=== PATIENT | male | born 1965 | race Caucasian/White ===

== ENCOUNTER 2017-10-16 10:04 | Outpatient (CLI) | payer OTHER ==
--- NOTE | 2017-10-16 11:57 | CARDIAC PROCEDURE NOTE ---
DATE OF SERVICE: 10/16/2017 Physician: ALPHONSE Stafford PRIMARY CARE PHYSICIAN - Anne Walden PA-C. PROCEDURE: Exercise tolerance test. 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 CURRENT SYMPTOMATOLOGY: None. CLINICAL HISTORY - 52-year-old male with known coronary artery disease and history of CABG, 5-vessel, around 2011. Initial resting vital signs - Blood pressure 126/70, HR 78, HT 70 inches, weight 159, BMI 22.8. The patient performed treadmill exercise using a Zak protocol, completing 9 minutes, 38 seconds and completing an estimated workload of 10.1 metabolic equivalents. Maximal blood pressure was 190/64 with a heart rate of 153 beats per minute or 90% of maximum predicted heart rate for age. The blood pressure response to exercise was within normal limits. The patient stopped due to his legs tiring. The resting ECG demonstrated normal sinus rhythm with repolarization abnormality. Maximal ST segment depression was 0- 0.5 mm and upsloping. There was no ectopy. FINAL IMPRESSIONS: 1. Negative stress electrocardiogram for ischemia by electrocardiographic criteria. 2. Negative stress test clinically for angina. 3. No ectopy, nor arrhythmia seen. 4. [place] [employer] Functional Class I. TD: 10/16/2017 11:57 [facility]
[2017-10-16 16:23] VITALS: BP 126/70
--- NOTE | 2017-10-23 09:04 | XRAY Report ---
CARDIOVASCULAR TREADMILL TEST There was no imaging performed for this exam. Procedure notes and results available in the EMR. MAXIMINO
== END 2017-10-16 10:05 | disposition home or self-care (01) ==
LOC: DI 10:04
PROVIDERS: ATTEND Physician Assistant
DX: Z02.4 Encounter for examination for driving license (principal); I25.10 Atherosclerotic heart disease of native coronary artery without angina pectoris; Z95.1 Presence of aortocoronary bypass graft
CPT/HCPCS: 78452; 93017

== ENCOUNTER 2019-10-13 12:08 | Outpatient (CLI) | payer OTHER, BC ==
--- NOTE | 2019-10-13 19:35 | XRAY Report ---
Reason: NEW ONSET OF RADICULOPATHY, CERVICAL FRACTURE REPA Procedure Date: 10/13/2019 Accession Number: [id number] / [id number] Procedure: XR - Cervical Spine 2 View CPT Code: Final Report FULL RESULT: EXAM: CERVICAL SPINE RADIOGRAPHY EXAM DATE: 10/13/2019 01:27 PM. CLINICAL HISTORY: New onset of radiculopathy, cervical fracture repair on 05/22/2019. COMPARISONS: XR CERVICAL SPINE 2 OR 3 VIEWS 05/21/2019 9:24 AM. TECHNIQUE: 3 views. FINDINGS: Alignment: Stable alignment with mild lower thoracic dextroscoliosis. Bones and disks: Previous anterior fusion and disk replacement C6-C7 with unremarkable and stable appearing surgical hardware. Mild to moderate disk height loss at C4-C5 and C5-C6. Multilevel bilateral moderate facet DJD. Soft Tissues: Normal. No prevertebral soft tissue swelling. The visualized lung apices are clear. IMPRESSION: 1. Previous anterior C6-C7 fusion and disk replacement appears unremarkable. 2. Mild to moderate disk level degenerative changes at C4-C5 and C5-C6. 3. Multilevel bilateral moderate facet DJD. RADIA
== END 2019-10-13 12:09 | disposition home or self-care (01) ==
LOC: DI 12:08
PROVIDERS: ATTEND Nurse Practitioner Family
DX: M47.812 Spondylosis without myelopathy or radiculopathy, cervical region (principal); M50.321 Other cervical disc degeneration at C4-C5 level
CPT/HCPCS: 72040

== ENCOUNTER 2021-06-13 11:02 | Outpatient (CLI) | payer OTHER ==
[2021-06-13 15:09] LABS: BASOPHILS # (AUTO) 0.1 10^3/uL (0.0-0.1); BASOPHILS % (AUTO) 0.6 %; EOSINOPHILS % (AUTO) 0.5 %; HCT - HEMATOCRIT 46.3 % (42.0-52.0); HGB - HEMOGLOBIN 15.6 g/dL (14.0-18.0); LYMPHOCYTES # (AUTO) 2.1 10^3/uL (1.5-3.5); LYMPHOCYTES % (AUTO) 24.1 %; MEAN CORPUSCULAR HEMOGLOBIN 32.9 pg (27.0-31.0); MEAN CORPUSCULAR HGB CONC 33.7 g/dL (32.0-36.0); MEAN CORPUSCULAR VOLUME 97.7 fL (80.0-94.0); MONOCYTES # (AUTO) 0.7 10^3/uL (0.0-1.0); MONOCYTES % (AUTO) 7.9 %; NEUTROPHILS # (AUTO) 5.7 10^3/uL (1.5-6.6); NEUTROPHILS % (AUTO) 66.5 %; PLT - PLATELET COUNT 246 10^3/uL (130-450); RED BLOOD COUNT 4.74 10^6/uL (4.70-6.10); RED CELL DISTRIBUTION WIDTH 12.5 % (12.0-15.0); WHITE BLOOD COUNT 8.6 x10^3/uL (4.8-10.8)
[2021-06-13 15:29] LABS: ALBUMIN 4.3 g/dL (3.2-5.5); ALBUMIN/GLOBULIN RATIO 1.2 (1.0-2.2); CALCIUM 9.5 mg/dL (8.5-10.3); CREATININE 0.7 mg/dL (0.6-1.2); POTASSIUM 4.3 mmol/L (3.5-5.0); TOTAL PROTEIN 7.8 g/dL (6.7-8.2)
== END 2021-06-13 11:03 | disposition home or self-care (01) ==
LOC: LAB.S 11:02
PROVIDERS: ATTEND Family Medicine
DX: R10.32 Left lower quadrant pain (principal)
CPT/HCPCS: 36415; 80053; 85025

== ENCOUNTER 2022-12-03 10:43 | Outpatient (CLI) | payer BC ==
--- NOTE | 2022-12-03 10:57 | CARDIAC PROCEDURE NOTE ---
Stress Test Report Service Date: 12/03/22 Service Time: 11:00 Ordering Provider: Vivian Rhoades MD Indication for Test: Screening study in patient with history of 5 vessel coronary artery bypass graft surgery in ~2009, with continued cigarette smoking and poor tolerance of simvastatin. Significant Medical History: Mr Gray reports the onset of a typical anginal symptom complex, with left arm aching, profuse sweats and increased work of breathing, which, after several normal resting EKGs, was determined to be ischemic in origin on a treadmill stress test. Heart catheterization by Dr. Hodgson revealed multivessel disease and he underwent CABG surgery that appears to have utilized a TALBERT graft, 2 radial artery grafts and 2 vein grafts. 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 He has remained on daily aspirin "religiously", but he found that simvastatin was disruptive to his sleep so he discontinued it; he has taken atenolol that was prescribed only intermittently, and he was lost to follow-up for some time. He has not had recurrence of his anginal symptoms, but continues to smoke, in spite of an attempt at cessation with Wellbutrin. 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 He was seen recently by Dr. Rhoades, who encouraged him to continue aspirin, transitioned him to metoprolol in place of atenolol and starte d rosuvastatin, which he has taken every night for the past week without any apparent side effects to date. Cardiac Risk Factors: Positive for known CAD, s/p CABG surgery, ongoing cigarette smoking of ~1.5 packs daily, hyperlipidemia, hypertension and positive family history of CAD and PAD in his father. He has no history of diabetes. Type of Stress Test: Exercise Treadmill Test (ETT) Procedure: -Exercise Treadmill Test- After signing informed consent, the patient performed treadmill exercise using a Zak protocol. The patient exercised for 6 minutes 9 seconds and achieved a peak heart rate of 154 (93 percent predicted maximum heart rate for age), and an estimated workload of 7.3 METS. The test was terminated due to fatigue/shortness of breath and calf tightness. Resting heart rate: 88 Peak heart rate: 154 Normal response to exercise. Resting BP: 136/91 Peak BP: 215/103 Elevation of resting diastolic BP, with physiologic increase in systolic BP and abnormal increase in diastolic BP in response to exercise. Rhythm during exercise: Sinus rhythm throughout with observation of 12 PVCs over the course of the exercise period. Symptoms: He reported no arm/neck/jaw/chest discomfort during exercise. EKG at rest showed normal sinus rhythm with poor R wave progression in leads V1V4, concerning for prior anteroseptal infarct, though no clear Q waves were present; no resting ST segment or T-wave abnormalities. EKG at peak stress showed J-point depression with upsloping ST depression, NOT meeting diagnostic criteria for ischemia. In Recovery heart rate rapidly/normally decreased toward baseline and BP gradually decreased, with final value 166/86 at 4 minutes. No imaging was ordered with this stress test. IRogelio MD, was present throughout this treadmill stress study and supervised it in its entirety. Summary: 1) Exercise tolerance significantly reduced for age, as evidenced by MOON of 32%. 2) Borderline abnormal resting EKG, with possible anteroseptal infarct pattern but interpretable ST segments throughout. 3) Adequate level of exercise was achieved on this treadmill stress test. 4) Normal systolic BP response to exercise, with abnormal increase in diastolic BP from baseline elevated level. 5) No ischemic changes by EKG criteria were seen at peak stress. 6) No imaging was ordered with this test. CONCLUSIONS: 1) No symptom or EKG evidence of inducible ischemia with an adequate level of treadmill stress. 2) Significantly reduced exercise capacity for age, likely due to ongoing tobacco smoking. The patient was counseled regarding the importance of discontinuation of cigarette smoking and he was advised to discuss a trial of Chantix with his primary provider, Dr. Rhoades. He was also encouraged to re- commit to a regular exercise program, given low risk ETT results and reduced exertional capacity., 3) With his abnormal resting diastolic blood pressure and abnormal increase in DBP with exercise, he appears to be an appropriate candidate for continued antihypertensive therapy. In view of low risk treadmill results regarding ischemia he may be better served by switching to either a vasodilating beta- maria (such as labetalol) or transitioning to a more standard antihypertensive agent such as a RAAS inhibitor, calcium channel maria or thiazide-like diuretic. 4) Follow-up evaluation and return to care under Dr. Hodgson may be reasonable given his ongoing risk factors, to bring the best resources to bear on these risk factors (e.g. cigarette cessation program and/or aggressive lipid lowering to goal).
== END 2022-12-03 10:44 | disposition home or self-care (01) ==
LOC: DI 10:43
PROVIDERS: ATTEND Family Medicine
DX: I25.10 Atherosclerotic heart disease of native coronary artery without angina pectoris (principal); Z95.1 Presence of aortocoronary bypass graft; F17.200 Nicotine dependence, unspecified, uncomplicated; E78.5 Hyperlipidemia, unspecified; I10 Essential (primary) hypertension; Z82.49 Family history of ischemic heart disease and other diseases of the circulatory system
CPT/HCPCS: 93016; 93017; 93018

== ENCOUNTER 2022-12-31 08:57 | Outpatient (CLI) | payer BC ==
[2022-12-31 14:46] LABS: BASOPHILS % (AUTO) 0.4 %; EOSINOPHILS # (AUTO) 0.1 10^3/uL (0.0-0.7); EOSINOPHILS % (AUTO) 0.6 %; HCT - HEMATOCRIT 44.2 % (42.0-52.0); LYMPHOCYTES # (AUTO) 2.1 10^3/uL (1.5-3.5); LYMPHOCYTES % (AUTO) 21.2 %; MEAN CORPUSCULAR HEMOGLOBIN 32.5 pg (27.0-31.0); MEAN CORPUSCULAR HGB CONC 33.9 g/dL (32.0-36.0); MEAN CORPUSCULAR VOLUME 95.7 fL (80.0-94.0); MONOCYTES # (AUTO) 0.9 10^3/uL (0.0-1.0); MONOCYTES % (AUTO) 8.7 %; NEUTROPHILS # (AUTO) 6.9 10^3/uL (1.5-6.6); NEUTROPHILS % (AUTO) 68.8 %; PLT - PLATELET COUNT 215 10^3/uL (130-450); RED BLOOD COUNT 4.62 10^6/uL (4.70-6.10); RED CELL DISTRIBUTION WIDTH 12.9 % (12.0-15.0)
[2022-12-31 15:15] LABS: THYROID STIMULATING HORMONE 0.74 uIU/mL (0.34-5.60)
[2022-12-31 15:16] LABS: FREE T3 3.58 pg/mL (2.5-3.9)
[2022-12-31 15:17] LABS: FREE T4 (FREE THYROXINE) 0.83 ng/dL (0.58-1.64)
[2022-12-31 15:20] LABS: PSA FREE 0.093 ng/mL (0.16-2.81)
[2022-12-31 15:22] LABS: ALBUMIN 4.1 g/dL (3.2-5.5); ALBUMIN/GLOBULIN RATIO 1.2 (1.0-2.2); ALKALINE PHOSPHATASE 76 IU/L (42-121); ALT ALANINE AMINOTRANSFERASE 61 IU/L (10-60); AST ASPARTATE AMINOTRANSFERASE 36 IU/L (10-42); BILIRUBIN,TOTAL 0.9 mg/dL (0.2-1.0); BUN - BLOOD UREA NITROGEN 12 mg/dL (6-20); CALCIUM 9.3 mg/dL (8.5-10.3); CARBON DIOXIDE - CO2 27 mmol/L (21-32); CHLORIDE 107 mmol/L (101-111); CHOL/HDL RATIO 4.1 (<5.0); CHOLESTEROL 199 mg/dL; CREATININE 0.6 mg/dL (0.6-1.2); GFR - MDRD 140 (>89); GLUCOSE 111 mg/dL (70-100); HDL CHOLESTEROL 49 mg/dL; LDL CHOLESTEROL,CALCULATED 127 mg/dL; LDL/HDL RATIO 2.6 (<3.6); POTASSIUM 4.5 mmol/L (3.5-5.0); PSA TOTAL 0.201 ng/mL (0.000-2.000); SODIUM 139 mmol/L (135-145); TOTAL PROTEIN 7.6 g/dL (6.7-8.2); TRIGLYCERIDES 115 mg/dL; VLDL CHOLESTEROL 23 mg/dL
[2022-12-31 20:32] LABS: ESTIMATED AVERAGE GLUCOSE 114 mg/dL (70-100); HEMOGLOBIN A1c% 5.6 % (4.27-6.07)
== END 2022-12-31 08:58 | disposition home or self-care (01) ==
LOC: LAB.S 08:57
PROVIDERS: ATTEND Family Medicine
DX: I25.10 Atherosclerotic heart disease of native coronary artery without angina pectoris (principal); E78.5 Hyperlipidemia, unspecified; R73.09 Other abnormal glucose; R53.83 Other fatigue; E55.9 Vitamin D deficiency, unspecified; N40.0 Benign prostatic hyperplasia without lower urinary tract symptoms
CPT/HCPCS: 36415; 80053; 80061; 82626; 83036; 83090; 83721; 84153; 84154; 84439; 84443; 84480; 84481; 85025; 86141

== ENCOUNTER 2023-08-26 13:15 | Outpatient (CLI) | payer BC ==
[2023-08-26 20:10] LABS: BASOPHILS # (AUTO) 0.1 10^3/uL (0.0-0.1); BASOPHILS % (AUTO) 0.5 %; EOSINOPHILS % (AUTO) 0.1 %; HGB - HEMOGLOBIN 14.4 g/dL (14.0-18.0); LYMPHOCYTES # (AUTO) 2.4 10^3/uL (1.5-3.5); LYMPHOCYTES % (AUTO) 25.1 %; MEAN CORPUSCULAR HEMOGLOBIN 31.7 pg (27.0-31.0); MEAN CORPUSCULAR HGB CONC 32.7 g/dL (32.0-36.0); MEAN CORPUSCULAR VOLUME 96.9 fL (80.0-94.0); MEAN PLATELET VOLUME 10.6 fL (7.4-11.4); MONOCYTES # (AUTO) 0.7 10^3/uL (0.0-1.0); MONOCYTES % (AUTO) 7.4 %; NEUTROPHILS # (AUTO) 6.4 10^3/uL (1.5-6.6); NEUTROPHILS % (AUTO) 66.7 %; PLT - PLATELET COUNT 307 10^3/uL (130-450); RED BLOOD COUNT 4.54 10^6/uL (4.70-6.10); RED CELL DISTRIBUTION WIDTH 13.1 % (12.0-15.0); WHITE BLOOD COUNT 9.6 x10^3/uL (4.8-10.8)
[2023-08-26 20:20] LABS: ALBUMIN 4.5 g/dL (3.2-5.5); ALBUMIN/GLOBULIN RATIO 1.3 (1.0-2.2); BILIRUBIN,TOTAL 1.1 mg/dL (0.2-1.0); CREATININE 0.6 mg/dL (0.6-1.3); CRP HIGH SENSITIVITY 2.23 mg/L; POTASSIUM 3.8 mmol/L (3.5-4.5); TOTAL PROTEIN 7.9 g/dL (6.4-8.9)
[2023-08-26 20:45] LABS: THYROID STIMULATING HORMONE 0.78 uIU/mL (0.34-5.60)
[2023-08-26 20:52] LABS: FERRITIN 289.9 ng/mL (23.9-336.2)
[2023-08-26 21:28] LABS: ESTIMATED AVERAGE GLUCOSE 108 mg/dL (70-100); HEMOGLOBIN A1c% 5.4 % (4.27-6.07)
[2023-08-28 05:11] LABS: VITAMIN D 25-HYDROXY 17.1 ng/mL (30.0-100.0)
== END 2023-08-26 13:16 | disposition home or self-care (01) ==
LOC: LAB.S 13:15
PROVIDERS: ATTEND Family Medicine
DX: E78.5 Hyperlipidemia, unspecified (principal); I25.10 Atherosclerotic heart disease of native coronary artery without angina pectoris; R53.83 Other fatigue; E55.9 Vitamin D deficiency, unspecified; R79.89 Other specified abnormal findings of blood chemistry; N40.0 Benign prostatic hyperplasia without lower urinary tract symptoms; E03.9 Hypothyroidism, unspecified
CPT/HCPCS: 36415; 80053; 82306; 82626; 82728; 83036; 83090; 83540; 84153; 84154; 84439; 84443; 84466; 84480; 84481; 84482; 85025; 86141